=== PATIENT | female | born 1980 | race Caucasian/White ===

== ENCOUNTER 2021-01-06 12:23 | Outpatient (CLI) | payer OTHER ==
[2021-01-06] MEDS ORDERED: FUROSEMIDE 20 MG/2 ML ONE (13:18)
== END 2021-01-06 23:59 | disposition home or self-care (01) ==
LOC: RAD 12:23
PROVIDERS: ATTEND Student in an Organized Health Care Education/Training Program
DX: N13.30 Unspecified hydronephrosis (principal)
CPT/HCPCS: 78708; A9562; J1940